=== PATIENT | male | born 1945 | race Two or more races ===

== ENCOUNTER 2018-07-02 09:37 | Emergency (ER) | payer MEDICARE, MEDICAID ==
[~2018-07-02] VITALS: Ht 177.8 cm; Wt 74.8 kg
[2018-07-02 09:49] VITALS: BP 120/65
[2018-07-02] MEDS ORDERED: KETOROLAC TROMETH 30 MG/ML 1ML VIAL IM ONE (10:45)
== END 2018-07-02 11:00 | disposition home or self-care (01) ==
LOC: EDBD 09:37 → ER 09:45
DX: S20.212A Contusion of left front wall of thorax, initial encounter (principal); V49.49XA Driver injured in collision with other motor vehicles in traffic accident, initial encounter; Y93.89 Activity, other specified; Y99.8 Other external cause status; Y92.89 Other specified places as the place of occurrence of the external cause
CPT/HCPCS: 71101; 96372; 99283; J1885